=== PATIENT | male | born 1985 ===

== ENCOUNTER 2022-10-16 05:26 | Emergency (ER) | payer SELFPAY ==
[~2022-10-16] VITALS: Ht 162.6 cm; Wt 88.6 kg
[2022-10-16 05:28] VITALS: TEMP 98.3
[2022-10-16 08:18] VITALS: BP 121/73
[2022-10-16] MEDS ORDERED: NORCO 325 MG-51 TAB PO (10:21)
[2022-10-16] MEDS ORDERED: CEPHALEXIN500 M1 PO (10:21)
[2022-10-16 10:33] VITALS: PULSE 76
== END 2022-10-16 10:33 | disposition home or self-care (01) ==
LOC: COL.ER 05:26
DX: S01.82XA Laceration with foreign body of other part of head, initial encounter (principal); F17.210 Nicotine dependence, cigarettes, uncomplicated; Z28.310 Unvaccinated for COVID-19; Z23 Encounter for immunization; W22.8XXA Striking against or struck by other objects, initial encounter